=== PATIENT | female | born 1965 | race Caucasian/White ===

== ENCOUNTER 2016-04-29 07:44 | Outpatient (CLI) | payer MEDICAID, OTHER | END 2016-04-29 07:45 | disposition home or self-care (01) | DX: Z12.31 Encounter for screening mammogram for malignant neoplasm of breast (principal); Z80.3 Family history of malignant neoplasm of breast; R73.9 Hyperglycemia, unspecified ==

== ENCOUNTER 2016-11-02 11:21 | Outpatient (CLI) | payer MEDICAID | END 2016-11-02 11:22 | disposition home or self-care (01) | LOC: LAB.WCP 11:21 | PROVIDERS: ATTEND Physician Assistant Medical | DX: F31.9 Bipolar disorder, unspecified (principal) | CPT/HCPCS: 36415; 80175 ==